=== PATIENT | male | born 1945 | race Caucasian/White ===

== ENCOUNTER → 2020-01-12 10:20 | Outpatient (BNVA) | payer MEDICARE, MEDICAID, SELFPAY | PROVIDERS: Family Provider Family Medicine; PCP Family Medicine; Visit Provider Internal Medicine | DX: Z79.899 Other long term (current) drug therapy (principal) | CPT/HCPCS: 84460; 85025 ==

== ENCOUNTER → 2020-11-12 09:35 | Outpatient (BNVA) | payer MEDICARE, MEDICAID, SELFPAY | PROVIDERS: Family Provider Family Medicine; PCP Nurse Practitioner Family; Visit Provider Internal Medicine Rheumatology | DX: M05.79 Rheumatoid arthritis with rheumatoid factor of multiple sites without organ or systems involvement (principal); Z79.899 Other long term (current) drug therapy; Z11.59 Encounter for screening for other viral diseases; Z11.1 Encounter for screening for respiratory tuberculosis; Z68.34 Body mass index [BMI] 34.0-34.9, adult; Z89.511 Acquired absence of right leg below knee; M06.9 Rheumatoid arthritis, unspecified | CPT/HCPCS: 36415; 71046; 73070; 73130; 80076; 82565; 85025; 85651; 86140; 86480; 86704; 86803; 87340; 99204 ==

== ENCOUNTER 2020-11-12 11:30 | Outpatient (CLI) | payer MEDICARE, MEDICAID, SELFPAY ==
--- NOTE | 2020-11-12 11:44 | XRR_ITS ---
PROCEDURE INFORMATION: Exam: XR Chest Exam date and time: 11/12/2020 12:23 PM Age: 75 years old Clinical indication: Condition or disease; Other: Arthritis; Additional info: Z79.899 - other skilled nursing (current) drug therapy TECHNIQUE: Imaging protocol: XR of the chest Views: 2 views. COMPARISON: No relevant prior studies available. FINDINGS: Lungs: Unremarkable. No consolidation. Pleural spaces: Unremarkable. No pleural effusion. No pneumothorax. Heart/Mediastinum: The cardiac silhouette is probably normal considering the poor inspiration and elevated diaphragm. Bones/joints: Unremarkable. XR/XR chest 2V* [id number] IMPRESSION: No significant cardiopulmonary abnormality.
--- NOTE | 2020-11-12 11:44 | XRR_ITS ---
PROCEDURE INFORMATION: Exam: XR Right Elbow Exam date and time: 11/12/2020 12:27 PM Age: 75 years old Clinical indication: Condition or disease; Arthritis; Type not specified; Elbow; Bilateral; Additional info: Z79.899 - other [facility] (current) drug therapy TECHNIQUE: Imaging protocol: XR Right elbow. Views: 1 or 2 views. COMPARISON: No relevant prior studies available. 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 There are prominent erosive changes involving the articular surfaces. Chronic osteophyte formation and synovial calcifications are present. No fracture or other acute abnormalities are seen. Soft tissues: Normal. XR/XR elbow RT 2V [id number] IMPRESSION: 1. No acute bony abnormality. 2. Prominent chronic erosive osteoarthritis.
--- NOTE | 2020-11-12 11:44 | XRR_ITS ---
PROCEDURE INFORMATION: Exam: XR Left Hand Exam date and time: 11/12/2020 12:29 PM Age: 75 years old Clinical indication: Condition or disease; Arthritis; Type not specified; Hand; Left; Additional info: Z79.899 - other [facility] drug [facility] TECHNIQUE: Imaging protocol: XR Left hand. Views: 3 or more views. COMPARISON: No relevant prior studies available. FINDINGS: Bones/joints: There is an old fracture with plate and screws in the distal radius. Xpfl-[id number] degenerative osteoarthritis is present with joint space narrowing sclerosis and small osteophytes especially in the 1st carpometacarpal, 1st metacarpophalangeal and the DIP joints. No acute destructive changes are seen. Soft tissues: Normal. XR/XR hand LT min 3V* [id number] IMPRESSION: 1. No acute abnormality. 2. Mild to moderate degenerative disease.
--- NOTE | 2020-11-12 11:44 | XRR_ITS ---
PROCEDURE INFORMATION: Exam: XR Left Elbow Exam date and time: 11/12/2020 12:29 PM Age: 75 years old Clinical indication: Condition or disease; Arthritis; Type not specified; Elbow; Bilateral; Additional info: Z79.899 - other [facility] (current) drug therapy TECHNIQUE: Imaging protocol: XR Left elbow. Views: 1 or 2 views. COMPARISON: No relevant prior studies available. FINDINGS: Bones/joints: Prominent chronic erosive osteoarthritis is present in the left elbow joint. There are prominent erosive changes involving the articular surfaces. Chronic osteophyte formation and synovial calcifications are present. No fracture or other acute abnormalities are seen. Soft tissues: Normal. XR/XR elbow LT 2V [id number] IMPRESSION: 1. No acute bony abnormality. 2. Prominent chronic erosive osteoarthritis.
--- NOTE | 2020-11-12 11:44 | XRR_ITS ---
PROCEDURE INFORMATION: Exam: XR Right Hand Exam date and time: 11/12/2020 12:25 PM Age: 75 years old Clinical indication: Condition or disease; Arthritis; Type not specified; Hand; Bilateral; Additional info: Z79.899 - [facility] ([facility] drug therapy TECHNIQUE: Imaging protocol: XR Right hand. Views: 3 or more views. COMPARISON: No relevant prior studies available. FINDINGS: Bones/joints: No fracture or other acute abnormalities are seen. Chronic degenerative osteoarthritis is present especially in the 1st carpometacarpal joint, the 1st and 5th metacarpophalangeal joints and in the DIP joints especially of the middle finger. There is joint space narrowing sclerosis bony erosion and osteophyte formation. No destructive changes are seen. Soft tissues: Normal. XR/XR hand RT min 3V* [id number] IMPRESSION: 1. No acute abnormality. 2. Prominent chronic erosive osteoarthritis.
[2020-11-12 12:58] LABS: Basophils % 0.6 %; Eosinophils # 0.2 10^3/uL (0.0-0.8); Hematocrit 31.3 % (42.0-52.0); Hemoglobin 10.1 g/dL (11.7-16.6); Lymphocytes # 1.7 10^3/uL (0.8-4.8); Lymphocytes % 22.9 %; Mean Corpuscular HGB Conc 32.3 g/dL (30.0-36.0); Mean Corpuscular Hemoglobin 30.2 pg (28.0-34.0); Mean Corpuscular Volume 93.7 fL (80-94); Mean Platelet Volume 12.9 fL (7.4-10.4); Monocytes # 0.7 10^3/uL (0.2-0.9); Monocytes % 10.1 %; Neutrophils # 4.58 10^3/uL (1.8-7.7); Nucleated Red Blood Cells % 0 %; Platelet Count 133 10^3/cmm (130-400); Red Blood Count 3.34 10^6/uL (4.1-5.3); Red Cell Distribution Width 13.6 % (12.1-15.1); White Blood Count 7.3 10^3/uL (4.0-10.0)
[2020-11-12 13:20] LABS: Alanine Aminotransferase 11 U/L (0-41); Albumin Level 3.8 g/dL (3.5-5.2); Alkaline Phosphatase 81 IU/L (40-130); Aspartate Amino Transferase 18 U/L (0-40); C Reactive Protein 0.9 mg/L (0.0-4.9); Globulin 2.8 g/dL (1.3-4.6); Total Bilirubin 0.3 mg/dL (0.15-1.2); Total Protein 6.6 g/dL (6.6-8.7)
[2020-11-12 13:51] LABS: Hepatitis B Core AB, Total Non-Reactive (Nonreactive); Hepatitis B Surface Antigen Non-Reactive (Nonreactive); Hepatitis C Virus Antibody Non-Reactive (Nonreactive)
[2020-11-12 14:08] LABS: Erythrocyte Sedimentation Rate 37 mm/hr (0-10)
[2020-11-14 12:53] LABS: Quantiferon Nil 0.05 IU/mL; Quantiferon TB Gold NEGATIVE (NEGATIVE)
== END 2020-11-12 11:31 | disposition home or self-care (01) ==
PROVIDERS: PCP Nurse Practitioner Family; Visit Provider Internal Medicine Rheumatology
DX: M06.9 Rheumatoid arthritis, unspecified (principal); Z79.899 Other long term (current) drug therapy; Z11.59 Encounter for screening for other viral diseases; Z11.1 Encounter for screening for respiratory tuberculosis
CPT/HCPCS: 36415; 71046; 73070; 73130; 80076; 82565; 85025; 85651; 86140; 86480; 86704; 86803; 87340

== ENCOUNTER → 2021-02-21 09:55 | Outpatient (BNVA) | payer MEDICARE, MEDICAID, SELFPAY | PROVIDERS: PCP Nurse Practitioner Family; Visit Provider Internal Medicine Rheumatology | DX: M05.79 Rheumatoid arthritis with rheumatoid factor of multiple sites without organ or systems involvement (principal); M19.90 Unspecified osteoarthritis, unspecified site; Z79.899 Other long term (current) drug therapy | CPT/HCPCS: 36415; 80076; 82565; 85025; 86140 ==

== ENCOUNTER 2021-03-08 06:48 | Outpatient (CLI) | payer MEDICARE, MEDICAID, SELFPAY ==
--- NOTE | 2021-03-08 07:15 | USCV_ITS ---
GarryVishnu chu Age: 75 Gender: M : 1945 Exam Date: 03/08/2021 07:21 Ordering Phys: Abdulaziz Badillo MD Technologist: MARGUERITE Exam Location: [facility] [place] Indication: soft tissue disorders, swelling PROCEDURES: Venous duplex imaging was performed in only the left upper extremity. In addition, the basilic vein and cephalic vein. In addition, the radial vein and ulnar vein. FINDINGS: No evidence of deep vein thrombosis or superficial thrombophlebitis in the left upper extremity. CONCLUSIONS No left upper extremity DVT. Dr. Lexis Alcazar DO (Electronically Signed) Final Date: 08 March 2021 09:09 S
== END 2021-03-08 06:49 | disposition home or self-care (01) ==
PROVIDERS: PCP Nurse Practitioner Family; Visit Provider Internal Medicine Rheumatology
DX: M79.89 Other specified soft tissue disorders (principal)
CPT/HCPCS: 93971

== ENCOUNTER → 2021-03-14 09:35 | Outpatient (BNVA) | payer MEDICARE, MEDICAID, SELFPAY | PROVIDERS: PCP Nurse Practitioner Family; Visit Provider Internal Medicine Rheumatology | DX: M05.79 Rheumatoid arthritis with rheumatoid factor of multiple sites without organ or systems involvement (principal); Z79.899 Other long term (current) drug therapy; M79.89 Other specified soft tissue disorders; D64.9 Anemia, unspecified; Z71.89 Other specified counseling; Z89.511 Acquired absence of right leg below knee | CPT/HCPCS: 99214 ==

== ENCOUNTER → 2021-04-09 08:56 | Outpatient (BNVA) | payer MEDICARE, MEDICAID, SELFPAY | PROVIDERS: PCP Nurse Practitioner Family; Visit Provider Internal Medicine Rheumatology | DX: M05.79 Rheumatoid arthritis with rheumatoid factor of multiple sites without organ or systems involvement (principal); Z79.899 Other long term (current) drug therapy | CPT/HCPCS: 80076; 82565; 85025; 86140 ==